=== PATIENT | female | born 1945 | race Caucasian/White ===

== ENCOUNTER 2019-03-14 10:35 | Emergency (ER) | payer MEDICARE, BC ==
[2019-03-14] MEDS ORDERED: Sodium Chloride 0.9% 10 ML Syringe FLUSH PRN (11:02)
[2019-03-14 11:20] VITALS: BP 163/83
--- NOTE | 2019-03-14 11:37 | CR ---
[id number] RAD/RAD Chest PA or AP 1V EXAM: FRONTAL CHEST INDICATION: Chest pain. COMPARISON: July 16, 2015. DISCUSSION: Mild linear scarring or atelectasis in the lung bases. A probable left hilar granulomas unchanged. The heart is at upper limits of normal for size. No definite acute infiltrates. IMPRESSION: 1. No acute findings. Juice Kent MD 03/14/19 1136 Thank you for allowing us to participate in the care of your patient.
[2019-03-14 11:54] LABS: CHLORIDE,CL 100 mmol/L (98-107); SODIUM,NA 139 mmol/L (136-145)
[2019-03-14 11:57] LABS: ANION GAP 14.7 mmol/L (10-20)
[2019-03-14] MEDS ORDERED: Iopamidol 612 MG/ML 100 ML Bottle IVPUSH ONE (12:20)
--- NOTE | 2019-03-14 13:15 | CT ---
[id number] CT/CTA Chest EXAM: CT ANGIOGRAM CHEST INDICATION: Left-sided chest pain and positive d-dimer. COMPARISON: Chest radiograph same date. DISCUSSION: The pulmonary arteries are normal in appearance with no emboli identified. Moderate emphysematous changes in both lungs. Scattered atherosclerotic plaque in the aorta and its major branches.No pleural or pericardial effusion. Normal heart size. No mediastinal, hilar or axillary lymphadenopathy. Left mastectomy. The imaged upper abdomen and osseous structures are unremarkable. IMPRESSION: 1. Negative for pulmonary embolism or other acute findings. 2. Moderate emphysema. Juice Kent MD 03/14/19 2689 Thank you for allowing us to participate in the care of your patient.
--- NOTE | 2019-03-15 00:16 | EDM.PDOC ---
ED HPI GENERAL MEDICAL PROBLEM - General Chief Complaint: Chest Pain Stated Complaint: CHEST PAINS Time Seen by Provider: 03/14/19 10:50 Source of Information: Reports: Patient History Limitations: Reports: No Limitations - History of Present Illness INITIAL COMMENTS - FREE TEXT/NARRATIVE: Pt. presents to ER with complaints of sharp, "prickling" pain to L anteriolateral chest. Pt. states that she has experienced this is the past but states that it is worse today. Denies any fever or chills. No substernal chest pain. She states that the discomfort is constant but intermittent. Denies any jaw, arm, neck or back pain. She states that the pain was worse when she woke up this AM. She has had some pain in the area that was thought to be secondary to mastectomy many years ago. She states that the discomfort is a deep as opposed to superficial pain. It was resolved by the time she got to the ER. Onset Date: 03/15/19 Location: Reports: Chest Quality: Reports: Sharp - Related Data Allergies Allergy/AdvReac Type Severity Reaction Status Date / Time lisinopril Allergy Shortness Verified 03/14/19 11:13 of Breath Penicillins Allergy Hives Verified 03/14/19 11:13 codeine AdvReac Nausea Verified 03/14/19 11:13 hydrocodone AdvReac Abdominal Verified 03/14/19 11:13 Pain metoprolol succinate AdvReac Anxiety Verified 03/14/19 11:13 [From Toprol XL] oxycodone HCl [From Roxicet] AdvReac Nausea and Verified 03/14/19 11:13 Vomiting Home Meds: Home Meds ALPRAZolam [Xanax] 0.25 mg PO BID 12/25/13 [History] Omeprazole 20 mg PO BID 12/25/13 [History] Sertraline HCl 100 mg PO DAILY 12/25/13 [History] Aspirin 325 mg PO DAILY 05/22/14 [History] Isosorbide Mononitrate [Imdur] 30 mg PO DAILY 05/22/14 [History] Nitroglycerin [Nitrostat] 0.4 mg SL ASDIRECTED 05/22/14 [History] Tiotropium [Spiriva HandiHaler] 18 mcg INH DAILY 07/16/15 [History] Cholecalciferol (Vitamin D3) [Vitamin D3] 3,000 unit PO ASDIRECTED 08/16/15 [ History] Cyanocobalamin (Vitamin B-12) [Vitamin B-12] 1,000 mcg PO ASDIRECTED 08/16/15 [ History] Past Medical History Cardiovascular History: Reports: Angina, CAD, Hypertension Other Cardiovascular History: chest pain Respiratory History: Reports: COPD Gastrointestinal History: Reports: Hiatal Hernia Genitourinary History: Reports: UTI, Recurrent Other Genitourinary History: RECENT SALMONELLA INFECTION Musculoskeletal History: Reports: Osteoarthritis Neurological History: Reports: Vertigo Endocrine/Metabolic History: Reports: Other (See Below) Other Endocrine/Metabolic History: hypokalemia Oncologic (Cancer) History: Reports: Breast - Past Surgical History Oncologic Surgical History: Reports: Mastectomy Social & Family History - Tobacco Use Smoking Status *Q: Never Smoker - Recreational Drug Use Recreational Drug Use: No - Living Situation & Occupation Living situation: Reports: , with Family Occupation: Employed ED ROS GENERAL - Review of Systems Review Of Systems: See Below Constitutional: Reports: No Symptoms HEENT: Reports: No Symptoms Cardiovascular: Reports: No Symptoms, Other (see above) GI/Abdominal: Reports: No Symptoms : Reports: No Symptoms Musculoskeletal: Reports: No Symptoms Skin: Reports: No Symptoms Neurological: Reports: No Symptoms Psychiatric: Reports: No Symptoms Hematologic/Lymphatic: Reports: No Symptoms Immunologic: Reports: No Symptoms ED EXAM, GENERAL - Physical Exam Exam: See Below Exam Limited By: No Limitations General Appearance: Alert, WD/WN, No Apparent Distress Nose: Normal Inspection, Normal Mucosa, No Blood Throat/Mouth: Normal Inspection, Normal Lips, Normal Teeth, Normal Gums Head: Atraumatic, Normocephalic Neck: Normal Inspection, Supple, Non-Tender, Full Range of Motion Respiratory/Chest: No Respiratory Distress, Lungs Clear, Normal Breath Sounds, No Accessory Muscle Use, Chest Non-Tender Cardiovascular: Normal Peripheral Pulses, Regular Rate, Rhythm, No Edema, No Gallop, No JVD, No Murmur, No Rub Peripheral Pulses: 4+: Radial (R) GI/Abdominal: Soft, Non-Tender, No Mass (Female) Exam: Deferred Rectal (Female) Exam: Deferred Back Exam: Normal Inspection, Full Range of Motion Extremities: Normal Inspection, Normal Range of Motion, Non-Tender, No Pedal Edema, Normal Capillary Refill Neurological: Alert, Oriented, CN II-XII Intact, Normal Cognition, Normal Gait, Normal Reflexes, No Motor/Sensory Deficits Psychiatric: Normal Affect, Normal Mood Skin Exam: Warm, Dry, Intact EKG INTERPRETATION Rhythm: NSR [place]: Normal P-Wave: Present QRS: Normal ST-T: Normal QT: Normal Comparison: No Change Course - Vital Signs Last Recorded V/S: Last Vital Signs Temp 36.6 C 03/14/19 10:35 Pulse 79 03/14/19 10:35 Resp 16 03/14/19 10:35 BP 163/83 H 03/14/19 10:35 Pulse Ox 93 L 03/14/19 10:35 - Orders/Labs/Meds Orders: Active Orders 24 hr Category Date Time Status EKG Documentation Completion [RC] STAT Care 03/14/19 11:03 Active Peripheral IV Insertion Adult [OM.PC] Routine Oth 03/14/19 11:04 Ordered Labs: Laboratory Tests 03/14/19 03/14/19 03/14/19 Range/Units 10:57 10:57 10:57 WBC 9.4 (4.0-10.0) x10^3/uL RBC 5.13 (4.00-5.50) x10^6/uL Hgb 13.7 D (12.0-16.0) g/dL Hct 40.6 (33.0-47.0) % MCV 79.1 (78.0-93.0) fL MCH 26.7 (26.0-32.0) pg MCHC 33.7 (32.0-36.0) g/dL RDW Coeff of Daljit 15.0 (10.0-15.0) % Plt Count 206 (130-400) x10^3/uL Neut % (Auto) 83.2 H (50.0-80.0) % Lymph % (Auto) 9.2 L (25.0-50.0) % [place] % (Auto) 6.4 (2.0-11.0) % Eos % (Auto) 1.0 (0.0-4.0) % Baso % (Auto) 0.2 (0.2-1.2) % PT 10.1 (10.0-12.8) SEC INR 0.9 L (2.0-3.5) D-Dimer, Quantitative (<=0.58) mg/LFEU Sodium 139 (136-145) mmol/L Potassium 3.7 (3.5-5.1) mmol/L Chloride 100 (98-107) mmol/L Carbon Dioxide 28 (21-32) mmol/L Anion Gap 14.7 (10-20) mmol/L BUN 14 (7-18) mg/dL Creatinine 0.8 (0.55-1.02) mg/dL Est Cr Clr Drug Dosing TNP Estimated GFR (MDRD) > 60 Glucose 111 H (74-106) mg/dL Calcium 9.4 (8.5-10.1) mg/dL Corrected Calcium 9.48 (8.5-10.1) mg/dL Phosphorus 4.3 (2.6-4.7) mg/dL Magnesium 1.8 (1.8-2.4) mg/dL Total Bilirubin 0.5 (0.2-1.0) mg/dL AST 15 (15-37) U/L ALT 21 (14-59) U/L Alkaline Phosphatase 86 (46-116) U/L C-Reactive Protein 0.2 (<=0.9) mg/dL Total Protein 8.0 (6.4-8.2) g/dL Albumin 3.9 (3.4-5.0) g/dL Globulin 4.1 Albumin/Globulin Ratio 0.95 // Range/Units 10:57 WBC (4.0-10.0) x10^3/uL RBC (4.00-5.50) x10^6/uL Hgb (12.0-16.0) g/dL Hct (33.0-47.0) % MCV (78.0-93.0) fL MCH (26.0-32.0) pg MCHC (32.0-36.0) g/dL RDW Coeff of Daljit (10.0-15.0) % Plt Count (130-400) x10^3/uL Neut % (Auto) (50.0-80.0) % Lymph % (Auto) (25.0-50.0) % [place] % (Auto) (2.0-11.0) % Eos % (Auto) (0.0-4.0) % Baso % (Auto) (0.2-1.2) % PT (10.0-12.8) SEC INR (2.0-3.5) D-Dimer, Quantitative 0.66 H (<=0.58) mg/LFEU Sodium (136-145) mmol/L Potassium (3.5-5.1) mmol/L Chloride (98-107) mmol/L Carbon Dioxide (21-32) mmol/L Anion Gap (10-20) mmol/L BUN (7-18) mg/dL Creatinine (0.55-1.02) mg/dL Est Cr Clr Drug Dosing Estimated GFR (MDRD) Glucose (74-106) mg/dL Calcium (8.5-10.1) mg/dL Corrected Calcium (8.5-10.1) mg/dL Phosphorus (2.6-4.7) mg/dL Magnesium (1.8-2.4) mg/dL Total Bilirubin (0.2-1.0) mg/dL AST (15-37) U/L ALT (14-59) U/L Alkaline Phosphatase (46-116) U/L C-Reactive Protein (<=0.9) mg/dL Total Protein (6.4-8.2) g/dL Albumin (3.4-5.0) g/dL Globulin Albumin/Globulin Ratio Meds: Medications Discontinued Medications Generic Name Dose Route Start Last Admin Trade Name Freq PRN Reason Stop Dose Admin Iopamidol 100 ml 03/14/19 12:20 03/14/19 12:41 Isovue-300 (61%) IVPUSH 03/14/19 12:21 100 ml ONETIME ONE Administration Sodium Chloride 10 ml 03/14/19 11:02 Saline Flush FLUSH ASDIRECTED PRN Keep Vein Open - Radiology Interpretation Free Text/Narrative:: CTA of chest did not reveal any acute pathology. Departure - Departure Time of Disposition: 12:30 Disposition: Home, Self-Care 01 Clinical Impression: Atypical chest pain - Discharge Information Instructions: Nonspecific Chest Pain, [id number] Referrals: Aylin Condon, [Primary Care Provider] - Forms: ED Department Discharge Additional Instructions: Home to rest. Follow-up in clinic in 7-10 days Return to ER if you have worsening discomfort or shortness of breath. - My Orders Last 24 Hours: My Active Orders 03/14/19 11:03 EKG Documentation Completion [RC] STAT 03/14/19 11:04 Peripheral IV Insertion Adult [OM.PC] Routine - Assessment/Plan Last 24 Hours: My Active Orders 03/14/19 11:03 EKG Documentation Completion [RC] STAT 03/14/19 11:04 Peripheral IV Insertion Adult [OM.PC] Routine Plan: Home to rest. Follow-up in clinic in 7-10 days Return to ER if you have worsening discomfort or shortness of breath.
== END 2019-03-14 13:45 | disposition home or self-care (01) ==
LOC: VM.ED 10:35
DX: R07.89 Other chest pain (principal); I10 Essential (primary) hypertension; I25.10 Atherosclerotic heart disease of native coronary artery without angina pectoris; M19.90 Unspecified osteoarthritis, unspecified site; Z79.82 Long term (current) use of aspirin; Z79.899 Other long term (current) drug therapy; Z88.0 Allergy status to penicillin; Z88.5 Allergy status to narcotic agent; Z88.8 Allergy status to other drugs, medicaments and biological substances
CPT/HCPCS: 71045; 71275; 80053; 83735; 84100; 85025; 85379; 85610; 86140; 93005; 93010; 99284; 99285; Q9967; 36415

== ENCOUNTER 2019-03-16 16:41 | Emergency (ER) | payer MEDICARE, BC ==
[2019-03-16] MEDS ORDERED: Sodium Chloride 0.9% 10 ML Syringe FLUSH PRN (16:43)
[2019-03-16] MEDS ORDERED: Enalaprilat 1.25 MG/ML SDV IVPUSH ONE (16:45)
[2019-03-16] MEDS ORDERED: GI Cocktail Oral Solution 30 ML PO ONE (16:45)
--- NOTE | 2019-03-16 16:56 | EDM.PDOC ---
ED HPI GENERAL MEDICAL PROBLEM - General Chief Complaint: Chest Pain Stated Complaint: high blood pressure Time Seen by Provider: 03/16/19 16:43 Source of Information: Reports: Patient, Provider History Limitations: Reports: No Limitations - History of Present Illness INITIAL COMMENTS - FREE TEXT/NARRATIVE: Patient presents from the [facility] with complaints of chest pain and elevated blood pressure of over 180 SBP. States pain is anterolateral and is reproducible. Seen in the ED here 03/14/19 for similar complaints with elevated d-dimer noted. Chest CTA negative for embolus. Work up negative at that time. States this has been ongoing for the last couple of weeks. No complaints of SOB or leg pain. No history of DVT. Denies headache, vision changes, numbness , tingling, jaw, neck, or arm pain. Denies nausea, vomiting, diarrhea, blood in stools or urine. Denies urinary symptoms. History of left mastectomy. Onset: Gradual Duration: Intermittent Location: Reports: Chest Quality: Reports: Sharp Severity: Moderate Worsens with: Reports: Breathing, Movement Associated Symptoms: Reports: No Other Symptoms - Related Data Allergies Allergy/AdvReac Type Severity Reaction Status Date / Time lisinopril Allergy Shortness Verified 03/16/19 17:14 of Breath Penicillins Allergy Hives Verified 03/16/19 17:14 codeine AdvReac Nausea Verified 03/16/19 17:14 hydrocodone AdvReac Abdominal Verified 03/16/19 17:14 Pain metoprolol succinate AdvReac Anxiety Verified 03/16/19 17:14 [From Toprol XL] oxycodone HCl [From Roxicet] AdvReac Nausea and Verified 03/16/19 17:14 Vomiting Home Meds: Home Meds ALPRAZolam [Xanax] 0.25 mg PO BID 12/25/13 [History] Omeprazole 20 mg PO BID 12/25/13 [History] Sertraline HCl 100 mg PO DAILY 12/25/13 [History] Aspirin 325 mg PO DAILY 05/22/14 [History] Isosorbide Mononitrate [Imdur] 30 mg PO DAILY 05/22/14 [History] Nitroglycerin [Nitrostat] 0.4 mg SL ASDIRECTED 05/22/14 [History] Tiotropium [Spiriva HandiHaler] 18 mcg INH DAILY 07/16/15 [History] Cholecalciferol (Vitamin D3) [Vitamin D3] 3,000 unit PO ASDIRECTED 08/16/15 [ History] Cyanocobalamin (Vitamin B-12) [Vitamin B-12] 1,000 mcg PO ASDIRECTED 08/16/15 [ History] Past Medical History Cardiovascular History: Reports: Angina, CAD, Hypertension Other Cardiovascular History: chest pain Respiratory History: Reports: COPD Gastrointestinal History: Reports: Hiatal Hernia Genitourinary History: Reports: UTI, Recurrent Other Genitourinary History: RECENT SALMONELLA INFECTION Musculoskeletal History: Reports: Osteoarthritis Neurological History: Reports: Vertigo Endocrine/Metabolic History: Reports: Other (See Below) Other Endocrine/Metabolic History: hypokalemia Oncologic (Cancer) History: Reports: Breast - Past Surgical History Oncologic Surgical History: Reports: Mastectomy Social & Family History - Living Situation & Occupation Living situation: Reports: , with Family Occupation: Employed ED ROS GENERAL - Review of Systems Review Of Systems: See Below Constitutional: Reports: No Symptoms HEENT: Reports: No Symptoms Respiratory: Reports: No Symptoms Cardiovascular: Reports: Chest Pain Endocrine: Reports: No Symptoms GI/Abdominal: Reports: No Symptoms : Reports: No Symptoms Musculoskeletal: Reports: No Symptoms Skin: Reports: No Symptoms Neurological: Reports: No Symptoms Psychiatric: Reports: Anxiety Hematologic/Lymphatic: Reports: No Symptoms Immunologic: Reports: No Symptoms ED EXAM, GENERAL - Physical Exam Exam: See Below Exam Limited By: No Limitations General Appearance: Alert, WD/WN, No Apparent Distress Eye Exam: Bilateral Eye: EOMI, Normal Inspection, PERRL Ears: Normal TMs Nose: Normal Inspection, Normal Mucosa, No Blood Throat/Mouth: Normal Inspection, Normal Lips, Normal Teeth, Normal Gums, Normal Oropharynx, Normal Voice, No Airway Compromise Head: Atraumatic, Normocephalic Neck: Normal Inspection, Supple, Non-Tender, Full Range of Motion Respiratory/Chest: No Respiratory Distress, Lungs Clear, Normal Breath Sounds, No Accessory Muscle Use, Chest Non-Tender Cardiovascular: Normal Peripheral Pulses, Regular Rate, Rhythm, No Edema, No Gallop, No JVD, No Murmur, No Rub Peripheral Pulses: 2+: Posterior Tibial (L), Posterior Tibial (R), Dorsalis Pedis (L), Dorsalis Pedis (R) GI/Abdominal: Normal Bowel Sounds, Soft, Non-Tender, No Organomegaly, No Distention, No Abnormal Bruit, No Mass Back Exam: Normal Inspection, Full Range of Motion, NT Extremities: Normal Inspection, Normal Range of Motion, Non-Tender, Normal Capillary Refill, No Pedal Edema Neurological: Alert, Oriented, CN II-XII Intact, Normal Cognition, Normal Gait, Normal Reflexes, No Motor/Sensory Deficits Psychiatric: Normal Affect, Normal Mood Skin Exam: Warm, Dry, Intact, Normal Color, No Rash, Other (prior left sided mastectomy scars) Lymphatic: No Adenopathy Course - Vital Signs Last Recorded V/S: Last Vital Signs Temp 36.9 C 03/16/19 16:41 Pulse 81 03/16/19 16:41 Resp 16 03/16/19 16:41 BP 153/73 H 03/16/19 17:30 Pulse Ox 95 03/16/19 16:41 - Orders/Labs/Meds Orders: Active Orders 24 hr Category Date Time Status EKG Documentation Completion [RC] STAT Care 03/16/19 16:43 Active Sodium Chloride 0.9% [Normal Saline] 1,000 ml Med 03/16/19 17:15 Ordered IV ASDIRECTED Sodium Chloride 0.9% [Saline Flush] Med 03/16/19 16:43 Active 10 ml FLUSH ASDIRECTED PRN Saline Lock Insert [OM.PC] Routine Oth 03/16/19 16:43 Ordered Medication Orders Sodium Chloride (Normal Saline) 1,000 mls @ 999 mls/hr IV ASDIRECTED VASU Last Admin: 03/16/19 17:28 Dose: 999 mls/hr Sodium Chloride (Saline Flush) 10 ml FLUSH ASDIRECTED PRN PRN Reason: Keep Vein Open Labs: Laboratory Tests 03/16/19 03/16/19 03/16/19 Range/Units 17:10 17:10 17:10 WBC 9.4 (4.0-10.0) x10^3/uL RBC 5.16 (4.00-5.50) x10^6/uL Hgb 14.0 (12.0-16.0) g/dL Hct 40.2 (33.0-47.0) % MCV 77.9 L (78.0-93.0) fL MCH 27.1 (26.0-32.0) pg MCHC 34.8 (32.0-36.0) g/dL RDW Coeff of Daljit 14.9 (10.0-15.0) % Plt Count 182 (130-400) x10^3/uL Neut % (Auto) 79.0 (50.0-80.0) % Lymph % (Auto) 12.0 L (25.0-50.0) % [place] % (Auto) 7.9 (2.0-11.0) % Eos % (Auto) 0.9 (0.0-4.0) % Baso % (Auto) 0.2 (0.2-1.2) % PT 9.9 L (10.0-12.8) SEC INR 0.9 L (2.0-3.5) APTT 24.5 (24.0-36.0) SEC D-Dimer, Quantitative 0.65 H (<=0.58) mg/LFEU Sodium 138 (136-145) mmol/L Potassium 3.6 (3.5-5.1) mmol/L Chloride 99 (98-107) mmol/L Carbon Dioxide 25 (21-32) mmol/L Anion Gap 17.6 (10-20) mmol/L BUN 9 (7-18) mg/dL Creatinine 0.8 (0.55-1.02) mg/dL Est Cr Clr Drug Dosing TNP Estimated GFR (MDRD) > 60 Glucose 105 (74-106) mg/dL Calcium 9.3 (8.5-10.1) mg/dL Corrected Calcium 9.22 (8.5-10.1) mg/dL Magnesium 2.1 (1.8-2.4) mg/dL Total Bilirubin 0.4 (0.2-1.0) mg/dL AST 15 (15-37) U/L ALT 20 (14-59) U/L Alkaline Phosphatase 84 (46-116) U/L Troponin I < 0.017 (<=0.056) ng/mL NT-Pro-B Natriuret Pep (<=450) pg/mL Total Protein 7.7 (6.4-8.2) g/dL Albumin 4.1 (3.4-5.0) g/dL Globulin 3.6 Albumin/Globulin Ratio 1.14 TSH, Ultra Sensitive 7.173 H (0.358-3.74) uIU/mL 03/16/19 Range/Units 17:10 WBC (4.0-10.0) x10^3/uL RBC (4.00-5.50) x10^6/uL Hgb (12.0-16.0) g/dL Hct (33.0-47.0) % MCV (78.0-93.0) fL MCH (26.0-32.0) pg MCHC (32.0-36.0) g/dL RDW Coeff of Daljit (10.0-15.0) % Plt Count (130-400) x10^3/uL Neut % (Auto) (50.0-80.0) % Lymph % (Auto) (25.0-50.0) % [place] % (Auto) (2.0-11.0) % Eos % (Auto) (0.0-4.0) % Baso % (Auto) (0.2-1.2) % PT (10.0-12.8) SEC INR (2.0-3.5) APTT (24.0-36.0) SEC D-Dimer, Quantitative (<=0.58) mg/LFEU Sodium (136-145) mmol/L Potassium (3.5-5.1) mmol/L Chloride (98-107) mmol/L Carbon Dioxide (21-32) mmol/L Anion Gap (10-20) mmol/L BUN (7-18) mg/dL Creatinine (0.55-1.02) mg/dL Est Cr Clr Drug Dosing Estimated GFR (MDRD) Glucose (74-106) mg/dL Calcium (8.5-10.1) mg/dL Corrected Calcium (8.5-10.1) mg/dL Magnesium (1.8-2.4) mg/dL Total Bilirubin (0.2-1.0) mg/dL AST (15-37) U/L ALT (14-59) U/L Alkaline Phosphatase (46-116) U/L Troponin I (<=0.056) ng/mL NT-Pro-B Natriuret Pep 317 (<=450) pg/mL Total Protein (6.4-8.2) g/dL Albumin (3.4-5.0) g/dL Globulin Albumin/Globulin Ratio TSH, Ultra Sensitive (0.358-3.74) uIU/mL Meds: Medications Generic Name Dose Route Start Last Admin Trade Name Freq PRN Reason Stop Dose Admin Sodium Chloride 1,000 mls @ 999 mls/hr 03/16/19 17:15 03/16/19 17:28 Normal Saline IV 999 mls/hr ASDIRECTED VASU Administration Sodium Chloride 10 ml 03/16/19 16:43 Saline Flush FLUSH ASDIRECTED PRN Keep Vein Open Discontinued Medications Generic Name Dose Route Start Last Admin Trade Name Freq PRN Reason Stop Dose Admin Al Hydroxide/Mg Hydroxide 30 ml 03/16/19 16:45 03/16/19 17:28 Gi Cocktail PO 03/16/19 16:46 30 ml ONETIME ONE Administration Diphenhydramine HCl 25 mg 03/16/19 17:08 03/16/19 17:32 Benadryl IVPUSH 03/16/19 17:09 25 mg ONETIME ONE Administration Enalaprilat 1.25 mg 03/16/19 16:45 03/16/19 17:30 Vasotec Iv IVPUSH 03/16/19 16:46 1.25 mg ONETIME ONE Administration Lorazepam 0.5 mg 03/16/19 17:08 03/16/19 17:33 Ativan IVPUSH 03/16/19 17:09 0.5 mg STAT ONE Administration Methylprednisolone Sodium Succinate 125 mg 03/16/19 17:08 03/16/19 17:28 Solu-Medrol IVPUSH 03/16/19 17:09 125 mg ONETIME ONE Administration - Re-Assessments/Exams Free Text/Narrative Re-Assessment/Exam: 03/16/19 18:13 Labwork grossly normal or without changes from Friday. D-dimer slightly lower but still elevated. Vasotec given, blood pressure reduced to 135 SBP. Chest pain improved. TSH noted to be high. Further work up with primary was recommended to the patient. States her granddaughter did have to have thyroid removed at age 22. Departure - Departure Time of Disposition: 18:14 Disposition: Home, Self-Care 01 Condition: Good Clinical Impression: Costochondral chest pain, Anxiety Instructions: Chest Wall Pain, [id number], Generalized Anxiety Disorder, Adult, Costochondritis, [id number] Forms: ED Department Discharge Additional Instructions: Plan 1. Rest and stay well hydrated today 2. Labs and other diagnostics grossly unchanged from Friday 3. I think your chest pain is related to some pain in the ribs and cartilage called costochondritis. This, paired with your anxiety is also resulting in elevated blood pressures. 4. Visit with your PCP regarding upping your anxiety medication dosage and perhaps starting on a small dose of medications for blood pressure control. 5. Please do not hesitate to call us if you have any further questions or concerns related to today's visit. - Problem List & Annotations (1) Hypertension SNOMED Code(s): 07567470 Code(s): I10 - ESSENTIAL (PRIMARY) HYPERTENSION Status: Chronic Priority : Medium Current Visit: No Qualifiers: Hypertension type: essential hypertension Qualified Code(s): I10 - Essential (primary) hypertension (2) Anxiety SNOMED Code(s): 37960546 Code(s): F41.9 - ANXIETY DISORDER, UNSPECIFIED Status: Acute Priority: Medium Current Visit: Yes (3) Costochondral chest pain SNOMED Code(s): 435355942, 189916754 Code(s): R07.1 - CHEST PAIN ON BREATHING Status: Acute Priority: Medium Current Visit: Yes - Problem List Review Problem List Initiated/Reviewed/Updated: Yes - My Orders Last 24 Hours: My Active Orders 03/16/19 16:43 EKG Documentation Completion [RC] STAT Sodium Chloride 0.9% [Saline Flush] 10 ml FLUSH ASDIRECTED PRN Saline Lock Insert [OM.PC] Routine 03/16/19 17:15 Sodium Chloride 0.9% [Normal Saline] 1,000 ml IV ASDIRECTED - Assessment/Plan Last 24 Hours: My Active Orders 03/16/19 16:43 EKG Documentation Completion [RC] STAT Sodium Chloride 0.9% [Saline Flush] 10 ml FLUSH ASDIRECTED PRN Saline Lock Insert [OM.PC] Routine 03/16/19 17:15 Sodium Chloride 0.9% [Normal Saline] 1,000 ml IV ASDIRECTED Assessment:: anxiety costochondral chest pain hypertension Plan: Plan 1. Rest and stay well hydrated today 2. Labs and other diagnostics grossly unchanged from Friday 3. I think your chest pain is related to some pain in the ribs and cartilage called costochondritis. This, paired with your anxiety is also resulting in elevated blood pressures. 4. Visit with your PCP regarding upping your anxiety medication dosage and perhaps starting on a small dose of medications for blood pressure control. 5. Please do not hesitate to call us if you have any further questions or concerns related to today's visit.
[2019-03-16] MEDS ORDERED: diphenhydrAMINE 50 MG/ML SDV IVPUSH ONE (17:08)
[2019-03-16] MEDS ORDERED: LORazepam 2 MG/ML SDV IVPUSH ONE (17:08)
[2019-03-16] MEDS ORDERED: methylPREDNISolone Sodium Succinate 125 MG/2 ML SDV IVPUSH ONE (17:08)
[2019-03-16] MEDS ORDERED: Sodium Chloride 0.9% 1,000 ML IV SCH (17:15)
--- NOTE | 2019-03-16 17:36 | CR ---
[id number] RAD/RAD Chest PA And Lateral EXAM: RAD Chest PA And Lateral INDICATION: CHEST PAIN. COMPARISON: CT and radiograph examinations from March 14, 2019. DISCUSSION: Cardiomediastinal silhouette is normal in size and contour. No infiltrate, effusion, pneumothorax, or edema. IMPRESSION: No acute findings in the chest or significant change from the prior examination. Eliot Shepard MD 03/16/19 1738 Thank you for allowing us to participate in the care of your patient.
[2019-03-16 17:50] LABS: ANION GAP 17.6 mmol/L (10-20); CHLORIDE,CL 99 mmol/L (98-107); SODIUM,NA 138 mmol/L (136-145)
[2019-03-16 18:05] VITALS: BP 139/78
== END 2019-03-16 18:19 | disposition home or self-care (01) ==
LOC: VM.ED 16:41
DX: F41.9 Anxiety disorder, unspecified (principal); R07.1 Chest pain on breathing; I10 Essential (primary) hypertension; I25.10 Atherosclerotic heart disease of native coronary artery without angina pectoris; M19.90 Unspecified osteoarthritis, unspecified site; Z88.0 Allergy status to penicillin; Z88.8 Allergy status to other drugs, medicaments and biological substances; Z88.5 Allergy status to narcotic agent; Z79.899 Other long term (current) drug therapy; Z79.82 Long term (current) use of aspirin
CPT/HCPCS: 36415; 71046; 80053; 83735; 83880; 84443; 84484; 85025; 85379; 85610; 85730; 93005; 96361; 96374; 96375; 99285-25; A9270-GY; J1200; J2060; J2930; J7030

== ENCOUNTER 2019-04-10 08:59 | Emergency (ER) | payer MEDICARE, BC ==
[2019-04-10 09:30] VITALS: BP 149/76; PULSE 75
[2019-04-10 10:02] LABS: CHLORIDE,CL 99 mmol/L (98-107); SODIUM,NA 136 mmol/L (136-145)
[2019-04-10 10:16] LABS: ANION GAP 12.6 mmol/L (10-20)
--- NOTE | 2019-04-10 10:41 | EDM.PDOC ---
ED HPI GENERAL MEDICAL PROBLEM - General Chief Complaint: Chest Pain Stated Complaint: SOB/RT SHOULDER PAIN Time Seen by Provider: 04/10/19 09:00 Source of Information: Reports: Patient History Limitations: Reports: No Limitations - History of Present Illness INITIAL COMMENTS - FREE TEXT/NARRATIVE: This patient presents to ER with complaints of R shoulder and L anterior chest pain. The patient has had similar symptoms in the past and this is her 3rd visit to ER in a month for similar symptoms. Pt. states that she has been having pain under her R shoulder blade for several days. She has also been having incisional pain since her mastectomy on the L anterior chest intermittently as well and feels as though the discomfort is worse today. She has not had any fever or chills. No substernal chest pain. She is not short of breath. No cough. Pt. has undergone numerous chest x-rays, CT angiogram of the chest, and lab testing in the past month, all of which has been negative. Onset: Today Onset Date: 04/10/19 Left Upper Chest Pain Score (Numeric/FACES): 3 - Related Data Allergies Allergy/AdvReac Type Severity Reaction Status Date / Time lisinopril Allergy Shortness Verified 04/10/19 09:21 of Breath Penicillins Allergy Hives Verified 04/10/19 09:21 codeine AdvReac Nausea Verified 04/10/19 09:21 hydrocodone AdvReac Abdominal Verified 04/10/19 09:21 Pain metoprolol succinate AdvReac Anxiety Verified 04/10/19 09:21 [From Toprol XL] oxycodone HCl [From Roxicet] AdvReac Nausea and Verified 04/10/19 09:21 Vomiting Home Meds: Home Meds ALPRAZolam [Xanax] 0.25 mg PO BID 12/25/13 [History] Sertraline HCl 100 mg PO DAILY 12/25/13 [History] Aspirin 325 mg PO DAILY 05/22/14 [History] Isosorbide Mononitrate [Imdur] 30 mg PO DAILY 05/22/14 [History] Tiotropium [Spiriva HandiHaler] 18 mcg INH DAILY 07/16/15 [History] Cholecalciferol (Vitamin D3) [Vitamin D3] 3,000 unit PO ASDIRECTED 08/16/15 [ History] Cyanocobalamin (Vitamin B-12) [Vitamin B-12] 1,000 mcg PO ASDIRECTED 08/16/15 [ History] Past Medical History Cardiovascular History: Reports: Angina, CAD, Hypertension Other Cardiovascular History: chest pain Respiratory History: Reports: COPD Gastrointestinal History: Reports: Hiatal Hernia Genitourinary History: Reports: UTI, Recurrent Other Genitourinary History: RECENT SALMONELLA INFECTION Musculoskeletal History: Reports: Osteoarthritis Neurological History: Reports: Vertigo Endocrine/Metabolic History: Reports: Other (See Below) Other Endocrine/Metabolic History: hypokalemia Oncologic (Cancer) History: Reports: Breast - Past Surgical History Oncologic Surgical History: Reports: Mastectomy Social & Family History - Tobacco Use Smoking Status *Q: Never Smoker - Recreational Drug Use Recreational Drug Use: No - Living Situation & Occupation Living situation: Reports: , with Family Occupation: Employed ED ROS GENERAL - Review of Systems Review Of Systems: See Below Constitutional: Reports: No Symptoms HEENT: Reports: No Symptoms Respiratory: Reports: Pleuritic Chest Pain Cardiovascular: Reports: No Symptoms Endocrine: Reports: No Symptoms GI/Abdominal: Reports: No Symptoms : Reports: No Symptoms Musculoskeletal: Reports: Shoulder Pain Skin: Reports: No Symptoms Neurological: Reports: No Symptoms Psychiatric: Reports: No Symptoms Hematologic/Lymphatic: Reports: No Symptoms Immunologic: Reports: No Symptoms ED EXAM, GENERAL - Physical Exam Exam: See Below Exam Limited By: No Limitations General Appearance: Alert, WD/WN, No Apparent Distress Respiratory/Chest: No Respiratory Distress, Lungs Clear, Normal Breath Sounds, No Accessory Muscle Use, Chest Non-Tender Cardiovascular: Normal Peripheral Pulses, Regular Rate, Rhythm, No Edema, No Gallop, No JVD, No Murmur, No Rub Peripheral Pulses: 3+: Radial (L) GI/Abdominal: Distended (Female) Exam: Deferred Rectal (Female) Exam: Deferred Back Exam: Normal Inspection, Full Range of Motion Extremities: Normal Inspection, Limited Range of Motion (limited ROM of R shoulder. Mild crepitus noted. Tenderness noted on palpation of lower border of scapula.) Neurological: Alert, Oriented, CN II-XII Intact, Normal Cognition, Normal Reflexes, No Motor/Sensory Deficits Psychiatric: Normal Affect, Normal Mood Skin Exam: Warm, Dry, Intact, Normal Color, No Rash Course - Vital Signs Last Recorded V/S: Last Vital Signs Temp 35.9 C 04/10/19 08:59 Pulse 75 04/10/19 08:59 Resp 16 04/10/19 08:59 BP 149/76 H 04/10/19 08:59 Pulse Ox 95 04/10/19 08:59 - Orders/Labs/Meds Orders: Active Orders 24 hr Category Date Time Status EKG Documentation Completion [RC] STAT Care 04/10/19 09:23 Active Chest 2V [CR] Stat Exams 04/10/19 09:23 Ordered Labs: Laboratory Tests 04/10/19 04/10/19 04/10/19 Range/Units 09:34 09:34 09:34 WBC 8.7 (4.0-10.0) x10^3/uL RBC 4.91 (4.00-5.50) x10^6/uL Hgb 13.2 (12.0-16.0) g/dL Hct 39.4 (33.0-47.0) % MCV 80.2 (78.0-93.0) fL MCH 26.9 (26.0-32.0) pg MCHC 33.5 (32.0-36.0) g/dL RDW Coeff of Daljit 15.6 H (10.0-15.0) % Plt Count 174 (130-400) x10^3/uL Neut % (Auto) 82.4 H (50.0-80.0) % Lymph % (Auto) 9.4 L (25.0-50.0) % [place] % (Auto) 6.9 (2.0-11.0) % Eos % (Auto) 1.0 (0.0-4.0) % Baso % (Auto) 0.3 (0.2-1.2) % PT 10.1 (10.0-12.8) SEC INR 0.9 L (2.0-3.5) Sodium 136 (136-145) mmol/L Potassium 4.6 (3.5-5.1) mmol/L Chloride 99 (98-107) mmol/L Carbon Dioxide 29 (21-32) mmol/L Anion Gap 12.6 (10-20) mmol/L BUN 10 (7-18) mg/dL Creatinine 0.8 (0.55-1.02) mg/dL Est Cr Clr Drug Dosing 56.00 mL/min Estimated GFR (MDRD) > 60 Glucose 122 H (74-106) mg/dL Calcium 9.3 (8.5-10.1) mg/dL Corrected Calcium 9.30 (8.5-10.1) mg/dL Total Bilirubin 0.5 (0.2-1.0) mg/dL AST 17 (15-37) U/L ALT 23 (14-59) U/L Alkaline Phosphatase 79 (46-116) U/L Troponin I < 0.017 (<=0.056) ng/mL Total Protein 7.2 (6.4-8.2) g/dL Albumin 4.0 (3.4-5.0) g/dL Globulin 3.2 Albumin/Globulin Ratio 1.25 Departure - Departure Time of Disposition: 10:44 Disposition: Home, Self-Care 01 Clinical Impression: Atypical chest pain - Discharge Information Instructions: Nonspecific Chest Pain, [id number] Referrals: Aylin Condon DO [Primary Care Provider] - Forms: ED Department Discharge Additional Instructions: There is no life-threatening cause for your chest pain. It is important that you follow-up with Dr. Condon for this. - My Orders Last 24 Hours: My Active Orders 04/10/19 09:23 EKG Documentation Completion [RC] STAT Chest 2V [CR] Stat - Assessment/Plan Last 24 Hours: My Active Orders 04/10/19 09:23 EKG Documentation Completion [RC] STAT Chest 2V [CR] Stat Plan: Pt. was advised to follow-up in clinic. Pt. should return if she develops shortness of breath, worsening discomfort, lightheadedness, or palpitations.
== END 2019-04-10 10:30 | disposition home or self-care (01) ==
LOC: VM.ED 08:59
DX: R07.89 Other chest pain (principal); I25.10 Atherosclerotic heart disease of native coronary artery without angina pectoris; I10 Essential (primary) hypertension; J44.9 Chronic obstructive pulmonary disease, unspecified; Z88.8 Allergy status to other drugs, medicaments and biological substances; Z88.0 Allergy status to penicillin; Z88.5 Allergy status to narcotic agent; Z79.899 Other long term (current) drug therapy
CPT/HCPCS: 36415; 80053; 84484; 85025; 85610; 93005; 99284-GF; 99285-25

== ENCOUNTER 2020-09-05 07:58 | Emergency (ER) | payer MEDICARE, BC ==
[2020-09-05] MEDS ORDERED: Sodium Chloride 0.9% 10 ML Syringe FLUSH PRN (08:20)
[2020-09-05] MEDS ORDERED: Aspirin 81 MG Tab.Chew PO ONE (08:21)
[2020-09-05] MEDS ORDERED: Nitroglycerin 0.4 MG Tab.SL SL ONE (08:21)
--- NOTE | 2020-09-05 08:41 | EDM.PDOC ---
ED HPI GENERAL MEDICAL PROBLEM - General Chief Complaint: Chest Pain Stated Complaint: CHEST PAIN Time Seen by Provider: 09/05/20 08:10 Source of Information: Reports: Patient History Limitations: Reports: No Limitations - History of Present Illness INITIAL COMMENTS - FREE TEXT/NARRATIVE: Patient comes emergency department today with complaints of left anterior chest pain. This patient for over the past 24 hours has had an intermittent heaviness sensation on the left anterior chest. She is unable to reproduce the pain. Comes and goes on its own. Does not get worse with deep breath cough or movement. She has had no shortness of breath cough or congestion. No fever no chills. The pain does not radiate anywhere from the site of origin. She has had no weakness dizziness lightheadedness. No palpitations. No cough or congestion. No fever no chills. No diaphoresis. No paresthesias. No abdominal pain nausea or vomiting. No hematuria dysuria or urinary frequency. No Covid Exposure No Covid symptoms. Chest Pain Pain Score (Numeric/FACES): 5 - Related Data Allergies Allergy/AdvReac Type Severity Reaction Status Date / Time lisinopril Allergy Shortness Verified 09/05/20 08:21 of Breath Penicillins Allergy Hives Verified 09/05/20 08:21 codeine AdvReac Nausea Verified 09/05/20 08:21 hydrocodone AdvReac Abdominal Verified 09/05/20 08:21 Pain metoprolol succinate AdvReac Anxiety Verified 09/05/20 08:21 [From Toprol XL] oxycodone HCl [From Roxicet] AdvReac Nausea and Verified 09/05/20 08:21 Vomiting Home Meds: Home Meds ALPRAZolam [Xanax] 0.25 mg PO BID 12/25/13 [History] Sertraline HCl 100 mg PO DAILY 12/25/13 [History] Aspirin 325 mg PO DAILY 05/22/14 [History] Isosorbide Mononitrate [Imdur] 30 mg PO DAILY 05/22/14 [History] Tiotropium [Spiriva HandiHaler] 18 mcg INH DAILY 07/16/15 [History] Cholecalciferol (Vitamin D3) [Vitamin D3] 3,000 unit PO ASDIRECTED 08/16/15 [History] Cyanocobalamin (Vitamin B-12) [Vitamin B-12] 1,000 mcg PO ASDIRECTED 08/16/15 [History] Nitroglycerin [Nitrostat] 0.4 mg SL ASDIRECTED #6 tab.subl 09/05/20 [Rx] Past Medical History Cardiovascular History: Reports: Angina, CAD, Hypertension Other Cardiovascular History: chest pain Respiratory History: Reports: COPD Gastrointestinal History: Reports: Hiatal Hernia Genitourinary History: Reports: UTI, Recurrent Other Genitourinary History: RECENT SALMONELLA INFECTION Musculoskeletal History: Reports: Osteoarthritis Neurological History: Reports: Vertigo Endocrine/Metabolic History: Reports: Other (See Below) Other Endocrine/Metabolic History: hypokalemia Oncologic (Cancer) History: Reports: Breast - Past Surgical History Oncologic Surgical History: Reports: Mastectomy Social & Family History - Living Situation & Occupation Living situation: Reports: , with Family Occupation: Employed ED ROS GENERAL - Review of Systems Review Of Systems: Comprehensive ROS is negative, except as noted in HPI. ED EXAM, GENERAL - Physical Exam Exam: See Below Exam Limited By: No Limitations General Appearance: Alert, WD/WN, No Apparent Distress Eye Exam: Bilateral Eye: EOMI, PERRL Ears: Normal External Exam, Normal TMs Nose: Normal Inspection, Normal Mucosa Throat/Mouth: Normal Inspection, Normal Lips, Normal Teeth, Normal Gums, Normal Oropharynx, Normal Voice, No Airway Compromise Head: Atraumatic, Normocephalic Neck: Normal Inspection, Supple, Non-Tender, Full Range of Motion Respiratory/Chest: No Respiratory Distress, Lungs Clear, Normal Breath Sounds, No Accessory Muscle Use, Chest Non-Tender Cardiovascular: Normal Peripheral Pulses, Regular Rate, Rhythm Peripheral Pulses: 2+: Radial (L), Radial (R), Posterior Tibial (L), Posterior Tibial (R), Dorsalis Pedis (L), Dorsalis Pedis (R) GI/Abdominal: Normal Bowel Sounds, Soft, Non-Tender, No Organomegaly, No Mass, Pelvis Stable (Female) Exam: Deferred Rectal (Female) Exam: Deferred Back Exam: Normal Inspection, Full Range of Motion Extremities: Normal Inspection, Normal Range of Motion, No Pedal Edema, Normal Capillary Refill Neurological: Alert, Oriented, CN II-XII Intact, Normal Cognition, Normal Gait, No Motor/Sensory Deficits Psychiatric: Normal Affect, Normal Mood Skin Exam: Warm, Dry, Intact, Normal Color, No Rash Lymphatic: No Adenopathy #1 Interpretation EKG Date: 09/05/20 Time: 07:53 Rhythm: NSR Rate (Beats/Min): 76 [place]: Normal P-Wave: Present QRS: Normal ST-T: Normal QT: Normal Comparison: No Change Course - Vital Signs Last Recorded V/S: Last Vital Signs Temp 97.6 F 09/05/20 08:10 Pulse 80 09/05/20 08:10 Resp 18 09/05/20 08:10 BP 127/76 09/05/20 08:27 Pulse Ox 96 09/05/20 08:10 - Orders/Labs/Meds Orders: Active Orders 24 hr Category Date Time Status Peripheral IV Insertion Adult [OM.PC] Stat Oth 09/05/20 08:20 Ordered Labs: Laboratory Tests 09/05/20 09/05/20 09/05/20 Range/Units 08:15 08:15 08:20 WBC 9.3 (4.0-10.0) x10^3/uL RBC 4.93 (4.00-5.50) x10^6/uL Hgb 14.3 (12.0-16.0) g/dL Hct 41.8 (33.0-47.0) % MCV 84.8 D (78.0-93.0) fL MCH 29.0 (26.0-32.0) pg MCHC 34.2 (32.0-36.0) g/dL RDW Coeff of Daljit 13.8 (10.0-15.0) % Plt Count 179 (130-400) x10^3/uL Neut % (Auto) 80.7 H (50.0-80.0) % Lymph % (Auto) 10.0 L (25.0-50.0) % [place] % (Auto) 7.8 (2.0-11.0) % Eos % (Auto) 1.3 (0.0-4.0) % Baso % (Auto) 0.2 (0.2-1.2) % Sodium 134 L (136-145) mmol/L Potassium 3.9 (3.5-5.1) mmol/L Chloride 97 L (98-107) mmol/L Carbon Dioxide 27 (21-32) mmol/L Anion Gap 13.9 (10-20) mmol/L BUN 9 (7-18) mg/dL Creatinine 0.8 (0.55-1.02) mg/dL Est Cr Clr Drug Dosing TNP Estimated GFR (MDRD) > 60 Glucose 106 (74-106) mg/dL Calcium 9.1 (8.5-10.1) mg/dL Corrected Calcium 9.10 (8.5-10.1) mg/dL Total Bilirubin 0.6 (0.2-1.0) mg/dL AST 16 (15-37) U/L ALT 22 (14-59) U/L Alkaline Phosphatase 81 (46-116) U/L POC Troponin I 0.01 (0.00-0.08) ng/mL Total Protein 7.3 (6.4-8.2) g/dL Albumin 4.0 (3.4-5.0) g/dL Globulin 3.3 Albumin/Globulin Ratio 1.21 SARS CoV-2 RNA Rapid CHANDANA (NEGATIVE) 09/05/20 Range/Units 09:16 WBC (4.0-10.0) x10^3/uL RBC (4.00-5.50) x10^6/uL Hgb (12.0-16.0) g/dL Hct (33.0-47.0) % MCV (78.0-93.0) fL MCH (26.0-32.0) pg MCHC (32.0-36.0) g/dL RDW Coeff of Daljit (10.0-15.0) % Plt Count (130-400) x10^3/uL Neut % (Auto) (50.0-80.0) % Lymph % (Auto) (25.0-50.0) % [place] % (Auto) (2.0-11.0) % Eos % (Auto) (0.0-4.0) % Baso % (Auto) (0.2-1.2) % Sodium (136-145) mmol/L Potassium (3.5-5.1) mmol/L Chloride (98-107) mmol/L Carbon Dioxide (21-32) mmol/L Anion Gap (10-20) mmol/L BUN (7-18) mg/dL Creatinine (0.55-1.02) mg/dL Est Cr Clr Drug Dosing Estimated GFR (MDRD) Glucose (74-106) mg/dL Calcium (8.5-10.1) mg/dL Corrected Calcium (8.5-10.1) mg/dL Total Bilirubin (0.2-1.0) mg/dL AST (15-37) U/L ALT (14-59) U/L Alkaline Phosphatase (46-116) U/L POC Troponin I (0.00-0.08) ng/mL Total Protein (6.4-8.2) g/dL Albumin (3.4-5.0) g/dL Globulin Albumin/Globulin Ratio SARS CoV-2 RNA Rapid CHANDANA Negative (NEGATIVE) Meds: Medications Discontinued Medications Generic Name Dose Route Start Last Admin Trade Name Freq PRN Reason Stop Dose Admin Aspirin 324 mg 09/05/20 08:21 09/05/20 08:26 Aspirin PO 09/05/20 08:22 324 mg ONETIME ONE Administration Nitroglycerin 0.4 mg 09/05/20 08:21 09/05/20 08:27 Nitrostat SL 09/05/20 08:22 0.4 mg ONETIME ONE Administration Sodium Chloride 10 ml 09/05/20 08:20 Saline Flush FLUSH ASDIRECTED PRN Keep Vein Open - Re-Assessments/Exams Free Text/Narrative Re-Assessment/Exam: 09/05/20 08:40 324 aspirin orally. NItro 1 tab sl. 09/05/20 09:20 Her anterior left chest pain resolved after the 1 dose of nitro about 20 minutes after taking it. The patient feels more that her symptoms improved after she was told that her labs and her EKG were okay. She does have history of anxiety and wonders this is not more anxiety in nature as this is a common symptom for her with her anxiety. Chest xray per radiology no acute acute process. Laboratory evaluation shows a normal white blood cell count at 9.3 hemoglobin 14.3 and platelets 179. The rest of her panel is rather unremarkable with sodium 134 chloride 97 normal creatinine is 0.8 with a BUN of 9 troponin 0 0.01. Her pain has been going on for more than 24 hours. She continues to feel just "crappy" she says which is how she has felt in the past with her Angina. She is really quite vague and can't describe her symptoms. She continues chest pain-free after the above. Her troponin is negative with her symptoms going on for over 24 hours. This could be a mixture of anxiety versus angina. She does have a history of angina. She is on isosorbide for angina prophylaxis. We will discharge her home with nitro for tonight and if she has the development of the pain to try this. I would like her to follow-up with her primary care tomorrow. I discussed at length the appropriate usage of nitro. Especially if after 3 doses she does not have any relief. She is understanding of this and her questions are answered. Departure - Departure Time of Disposition: 10:01 Disposition: Home, Self-Care 01 Clinical Impression: Acute angina Prescriptions: Nitroglycerin [Nitrostat] 0.4 mg SL ASDIRECTED #6 tab.subl Instructions: Angina, [id number] Referrals: Aylin Condon DO [Primary Care Provider] - Forms: ED Department Discharge Additional Instructions: Continue with your previous medications. Rest today. Nitro, 1 tablet under your tongue if the pain returns, repeat every 5 minutes for a total of 3 doses. RX sent to the pharmacy. If the pain does not resolve after three doses be seen in the ED or urgent care. See Dr. Condon tomorrow in the clinic for recheck. Return to the ED if new or worsening symptoms or as above. Sepsis Event Note (ED) - Focused Exam Vital Signs: Vital Signs Temp Pulse Resp BP BP Pulse Ox 09/05/20 08:27 127/76 09/05/20 08:10 97.6 F 80 18 157/90 H 96 - My Orders Last 24 Hours: My Active Orders 09/05/20 08:20 Peripheral IV Insertion Adult [OM.PC] Stat - Assessment/Plan Last 24 Hours: My Active Orders 09/05/20 08:20 Peripheral IV Insertion Adult [OM.PC] Stat
[2020-09-05 08:42] LABS: CHLORIDE,CL 97 mmol/L (98-107); SODIUM,NA 134 mmol/L (136-145)
[2020-09-05 08:43] LABS: ANION GAP 13.9 mmol/L (10-20)
--- NOTE | 2020-09-05 08:59 | CR ---
[id number] RAD/RAD Chest PA And Lateral EXAM: RAD Chest PA And Lateral CLINICAL DATA: CHEST PAIN COPD COMPARISON: CORRELATION IS MADE WITH MARCH 16, 2019 FINDINGS: A left mastectomy is seen The lungs are clear The cardiac silhouette is stable IMPRESSION: NO ACUTE PROCESS. Shivam Diamond MD 09/05/20 0858 Thank you for allowing us to participate in the care of your patient.
[2020-09-05 09:39] VITALS: BP 157/90; PULSE 80
== END 2020-09-05 10:26 | disposition home or self-care (01) ==
LOC: VM.ED 07:58 → SUPCPDRO 07:58 → VM.ED 10:26
DX: I25.119 Atherosclerotic heart disease of native coronary artery with unspecified angina pectoris (principal); I10 Essential (primary) hypertension; J44.9 Chronic obstructive pulmonary disease, unspecified; M19.90 Unspecified osteoarthritis, unspecified site; Z79.82 Long term (current) use of aspirin; Z79.899 Other long term (current) drug therapy; Z88.5 Allergy status to narcotic agent; Z88.8 Allergy status to other drugs, medicaments and biological substances; Z88.0 Allergy status to penicillin; Z20.828 Contact with and (suspected) exposure to other viral communicable diseases
CPT/HCPCS: 71046; 80053; 84484; 85025; 93005; 93010; 99284; 99285-25; A9270-GY; U0002

== ENCOUNTER 2020-09-18 10:50 | Emergency (ER) | payer MEDICARE, BC ==
--- NOTE | 2020-09-18 11:05 | EDM.PDOC ---
ED HPI GENERAL MEDICAL PROBLEM - General Chief Complaint: Chest Pain Stated Complaint: CHEST PAIN Time Seen by Provider: 09/18/20 10:55 Source of Information: Reports: Patient, EMS, Family History Limitations: Reports: No Limitations - History of Present Illness INITIAL COMMENTS - FREE TEXT/NARRATIVE: Patient states she has been having intermittent chest pain over the last several days she describes as midsternal sharp stabbing intermittent that may last anywhere from minutes to hours at a time. She has been seen here on 06 September in the ER with a negative work-up and then seen by her primary care provider a few days later with a normal checkup and only had an increase in her Isorbid. Patient states at 6:00 this morning she started having chest pain that she described as a 6 out of 10 took a nitro and was completely relieved and then it started again about 930 when she called EMS. She states the pain described as mid sternal sharp and stabbing with questionable radiation across the left breast and into the left arm. She denies any nausea or vomiting diaphoresis or shortness of breath. She has had a cardiac cath questionable 5 to 6 years ago where she was told she had coronary artery disease but no stents were placed. Currently at this time she is pain-free and states she feels fine Duration: Day(s): Location: Reports: Chest Quality: Reports: Stabbing Severity: Mild Improves with: Reports: Medication Worsens with: Reports: None Associated Symptoms: Reports: No Other Symptoms Treatments HAND IRONER: Reports: Aspirin, Nitroglycerin - Related Data Allergies Allergy/AdvReac Type Severity Reaction Status Date / Time lisinopril Allergy Shortness Verified 09/18/20 11:11 of Breath Penicillins Allergy Hives Verified 09/18/20 11:11 codeine AdvReac Nausea Verified 09/18/20 11:11 hydrocodone AdvReac Abdominal Verified 09/18/20 11:11 Pain metoprolol succinate AdvReac Anxiety Verified 09/18/20 11:11 [From Toprol XL] oxycodone HCl [From Roxicet] AdvReac Nausea and Verified 09/18/20 11:11 Vomiting Home Meds: Home Meds ALPRAZolam [Xanax] 0.25 mg PO BID 12/25/13 [History] Sertraline HCl 100 mg PO DAILY 12/25/13 [History] Aspirin 325 mg PO DAILY 05/22/14 [History] Isosorbide Mononitrate [Imdur] 60 mg PO DAILY 05/22/14 [History] Tiotropium [Spiriva HandiHaler] 18 mcg INH DAILY 07/16/15 [History] Cholecalciferol (Vitamin D3) [Vitamin D3] 3,000 unit PO ASDIRECTED 08/16/15 [History] Cyanocobalamin (Vitamin B-12) [Vitamin B-12] 1,000 mcg PO ASDIRECTED 08/16/15 [History] Nitroglycerin [Nitrostat] 0.4 mg SL ASDIRECTED #6 tab.subl 09/05/20 [Rx] Past Medical History Cardiovascular History: Reports: Angina, CAD, Hypertension Other Cardiovascular History: chest pain Respiratory History: Reports: COPD Gastrointestinal History: Reports: Hiatal Hernia Genitourinary History: Reports: UTI, Recurrent Other Genitourinary History: RECENT SALMONELLA INFECTION Musculoskeletal History: Reports: Osteoarthritis Neurological History: Reports: Vertigo Psychiatric History: Reports: Anxiety Endocrine/Metabolic History: Reports: Other (See Below) Other Endocrine/Metabolic History: hypokalemia Oncologic (Cancer) History: Reports: Breast - Past Surgical History Oncologic Surgical History: Reports: Mastectomy Social & Family History - Living Situation & Occupation Living situation: Reports: , with Family Occupation: Employed ED ROS GENERAL - Review of Systems Review Of Systems: See Below Constitutional: Reports: No Symptoms HEENT: Reports: No Symptoms Respiratory: Reports: No Symptoms. Denies: Shortness of Breath, Wheezing, Pleuritic Chest Pain Cardiovascular: Reports: Chest Pain. Denies: Claudication, Dyspnea on Exertion, Edema, Lightheadedness, Orthopnea, Syncope Endocrine: Reports: No Symptoms GI/Abdominal: Reports: No Symptoms : Reports: No Symptoms Musculoskeletal: Reports: No Symptoms Skin: Reports: No Symptoms Neurological: Reports: No Symptoms Psychiatric: Reports: No Symptoms Hematologic/Lymphatic: Reports: No Symptoms Immunologic: Reports: No Symptoms ED EXAM, GENERAL - Physical Exam Exam: See Below Exam Limited By: No Limitations General Appearance: Alert, WD/WN, No Apparent Distress Eye Exam: Bilateral Eye: Normal Inspection Throat/Mouth: Normal Inspection, Normal Lips, Normal Teeth, Normal Gums, Normal Oropharynx, Normal Voice, No Airway Compromise Head: Atraumatic, Normocephalic Neck: Normal Inspection, Supple, Non-Tender, Full Range of Motion Respiratory/Chest: No Respiratory Distress, Lungs Clear, Normal Breath Sounds, No Accessory Muscle Use, Chest Non-Tender Cardiovascular: Normal Peripheral Pulses, Regular Rate, Rhythm, No Edema, No Gallop, No JVD, No Murmur, No Rub GI/Abdominal: Normal Bowel Sounds, Soft, Non-Tender, No Organomegaly, No Distention. No: Guarding, Rigid, Rebound, Tender Extremities: Normal Inspection, Normal Range of Motion, Non-Tender, No Pedal Edema, Normal Capillary Refill Neurological: Alert, Oriented, CN II-XII Intact, Normal Cognition, Normal Gait Psychiatric: Normal Affect, Normal Mood Skin Exam: Warm, Dry, Intact, Normal Color Course - Vital Signs Text/Narrative:: EKG via EMS normal sinus rhythm no acute findings normal IL interval labs ordered CBC BMP troponin chest x-ray CXR NAF CBC wnl Trop wnl PT had cath 2013 called [id number] Thomas at 1246 will see in consult send through ER spoke with Er will accept 1252 Last Recorded V/S: Last Vital Signs Temp 36.9 C 09/18/20 13:57 Pulse 72 09/18/20 13:57 Resp 14 09/18/20 13:57 BP 124/80 09/18/20 13:57 Pulse Ox 96 09/18/20 13:57 - Orders/Labs/Meds Labs: Laboratory Tests 09/18/20 09/18/20 Range/Units 11:20 11:20 WBC 10.3 H (4.0-10.0) x10^3/uL RBC 4.97 (4.00-5.50) x10^6/uL Hgb 14.6 (12.0-16.0) g/dL Hct 41.6 (33.0-47.0) % MCV 83.7 (78.0-93.0) fL MCH 29.4 (26.0-32.0) pg MCHC 35.1 (32.0-36.0) g/dL RDW Coeff of Daljit 13.4 (10.0-15.0) % Plt Count 172 (130-400) x10^3/uL Add Manual Diff Yes Neutrophils % (Manual) 87 H (50-80) % Band Neutrophils % 1 (0-6) % Lymphocytes % (Manual) 9 L (25-50) % Monocytes % (Manual) 3 (2-11) % Platelet Estimate Adequate Anisocytosis 1+ slight H Sodium 133 L (136-145) mmol/L Potassium 5.1 (3.5-5.1) mmol/L Chloride 99 (98-107) mmol/L Carbon Dioxide 22 (21-32) mmol/L Anion Gap 17.1 (10-20) mmol/L BUN 10 (7-18) mg/dL Creatinine 0.7 (0.55-1.02) mg/dL Est Cr Clr Drug Dosing TNP Estimated GFR (MDRD) > 60 Glucose 112 H (74-106) mg/dL Calcium 8.7 (8.5-10.1) mg/dL Troponin I 0.048 (<=0.056) ng/mL Departure - Departure Time of Disposition: 12:55 Disposition: DC/Tfer to [facility] Reason for Transfer *Q: Other (no [place]) Condition: Good Clinical Impression: Chest pain, Angina at rest Referrals: Aylin Condon DO [Primary Care Provider] - Forms: ED Department Discharge, Interfacility Transfer EMTALA - Problem List & Annotations (1) Chest pain SNOMED Code(s): 00707334 Code(s): R07.9 - CHEST PAIN, UNSPECIFIED Status: Acute (2) Angina at rest SNOMED Code(s): 239383258 Code(s): I20.8 - OTHER FORMS OF ANGINA PECTORIS Status: Acute
--- NOTE | 2020-09-18 11:32 | CR ---
[id number] RAD/RAD Chest PA or AP 1V EXAM: RAD Chest PA or AP 1V INDICATION: CHEST PAIN. COMPARISON: September 05, 2020. DISCUSSION: Cardiomediastinal silhouette is normal in size and contour. Lungs are clear. No pleural effusion or pneumothorax. IMPRESSION: Negative examination of the chest. Eliot Shepard MD 09/18/20 1131 Thank you for allowing us to participate in the care of your patient.
[2020-09-18 11:55] LABS: CHLORIDE,CL 99 mmol/L (98-107); SODIUM,NA 133 mmol/L (136-145)
[2020-09-18 11:59] LABS: ANION GAP 17.1 mmol/L (10-20)
[2020-09-18 13:58] VITALS: BP 124/80; PULSE 72
== END 2020-09-18 14:36 | disposition short-term general hospital (02) ==
LOC: VM.ED 10:50
DX: I25.119 Atherosclerotic heart disease of native coronary artery with unspecified angina pectoris (principal); I10 Essential (primary) hypertension; J44.9 Chronic obstructive pulmonary disease, unspecified; M19.90 Unspecified osteoarthritis, unspecified site; F41.9 Anxiety disorder, unspecified; Z88.8 Allergy status to other drugs, medicaments and biological substances; Z88.0 Allergy status to penicillin; Z88.5 Allergy status to narcotic agent; Z79.82 Long term (current) use of aspirin; Z79.899 Other long term (current) drug therapy
CPT/HCPCS: 36415; 71045; 80048; 84484; 85025; 99284; 99285-25

== ENCOUNTER 2024-11-22 08:32 | Day surgery (SDC) | payer MEDICARE, BC ==
[~2024-11-22 08:32] MED LIST: Brimonidine 0.2% Ophth Soln 5 ML Bottle ONE; Dexamethasone/Neomycin/Polymyxin B Ophth Oint 3.5 GM Tube ONE; Lidocaine 1% 2 ML ONE; Phenyleprhine/Ketorolac 4 ML Vial ONE; Povidone-Iodine 5% Sterile Ophth Soln 30 ML Bottle ONE; Proparacaine 0.5% Ophth Soln 15 ML Bottle ONE; Sodium Chloride 0.9% 10 ML Syringe FLUSH PRN
[2024-11-22] MEDS: Tropicamide 1% Ophth Soln 3 ML Bottle EYERT SCH (09:05)
[2024-11-22] MEDS: Cyclopentolate 1% Opth Soln 2 ML Bottle EYERT SCH (09:05)
[2024-11-22] MEDS: Phenylephrine 2.5% Ophth Soln 2 ML Bot EYERT SCH (09:05)
[2024-11-22] MEDS ORDERED: fentaNYL 100 MCG/2 ML SDV ONE (09:24)
[2024-11-22] MEDS ORDERED: Midazolam 1 MG/ML 2 ML SDV ONE (09:24)
[2024-11-22] MEDS: Moxifloxacin 0.5% Ophth Soln 3 ML Bottle EYERT ONE ×2 (09:30→10:25)
[2024-11-22] MEDS: Balanced Salt Solution Ophth Irrig 500 ML Bottle IOCULAR ONE (10:26)
[2024-11-22] MEDS: Lidocaine 1% PF 2 ML SDV INFILT ONE (10:26)
[2024-11-22] MEDS: Phenyleprhine/Ketorolac 4 ML Vial IO ONE (10:26)
[2024-11-22] MEDS: Chondroitin Sulfate/Hyaluronate Sodium Ophth Inj 0.5 ML Syringe IOCULAR ONE (10:27)
[2024-11-22] MEDS: Brimonidine 0.2% Ophth Soln 5 ML Bottle EYERT ONE (10:27)
[2024-11-22] MEDS: Povidone-Iodine 5% Sterile Ophth Soln 30 ML Bottle EYERT ONE (10:28)
[2024-11-22] MEDS: Dexamethasone/Neomycin/Polymyxin B Ophth Oint 3.5 GM Tube EYERT ONE (10:28)
[2024-11-22] MEDS ORDERED: ceFAZolin 500 MG Vial ONE (10:29)
[2024-11-22 11:01] VITALS: BP 111/57; PULSE 72
[2024-11-22] MEDS: acetaZOLAMIDE 500 MG Cap.ER PO ONE (11:02)
== END 2024-11-22 11:20 | disposition home or self-care (01) ==
LOC: VM.SDS 08:32
PROVIDERS: ATTEND Ophthalmology
DX: H25.811 Combined forms of age-related cataract, right eye (principal); I10 Essential (primary) hypertension; Z88.0 Allergy status to penicillin; Z88.8 Allergy status to other drugs, medicaments and biological substances; Z79.82 Long term (current) use of aspirin; Z79.899 Other long term (current) drug therapy; Z87.891 Personal history of nicotine dependence
CPT/HCPCS: 66984; A9270; J0690; J1097; J2003; J2250; J3010; V2632; J3490

== ENCOUNTER 2024-12-27 06:33 | Day surgery (SDC) | payer MEDICARE, BC ==
[~2024-12-27 06:33] MED LIST changes: -Sodium Chloride 0.9% 10 ML Syringe FLUSH PRN
[2024-12-27] MEDS: Tropicamide 1% Ophth Soln 15 ML Bottle EYELF SCH (06:52)
[2024-12-27] MEDS: Phenylephrine 2.5% Ophth Soln 2 ML Bot EYELF SCH (06:52)
[2024-12-27] MEDS: Cyclopentolate 1% Opth Soln 2 ML Bottle EYELF SCH (06:52)
[2024-12-27] MEDS: Moxifloxacin 0.5% Ophth Soln 3 ML Bottle EYELF ONE ×2 (07:16→08:43)
[2024-12-27] MEDS ORDERED: Midazolam 1 MG/ML 2 ML SDV ONE (08:22)
[2024-12-27] MEDS: Povidone-Iodine 5% Sterile Ophth Soln 30 ML Bottle EYELF ONE (08:43)
[2024-12-27] MEDS: Phenyleprhine/Ketorolac 4 ML Vial IO ONE (08:44)
[2024-12-27] MEDS: Balanced Salt Solution Ophth Irrig 500 ML Bottle IOCULAR ONE (08:44)
[2024-12-27] MEDS: Lidocaine 1% PF 2 ML SDV INFILT ONE (08:44)
[2024-12-27] MEDS: Brimonidine 0.2% Ophth Soln 5 ML Bottle EYELF ONE (08:45)
[2024-12-27] MEDS: Chondroitin Sulfate/Hyaluronate Sodium Ophth Inj 0.5 ML Syringe IOCULAR ONE (08:45)
[2024-12-27] MEDS: Dexamethasone/Neomycin/Polymyxin B Ophth Oint 3.5 GM Tube EYELF ONE (08:45)
[2024-12-27 09:02] VITALS: PULSE 68
[2024-12-27] MEDS: acetaZOLAMIDE 500 MG Cap.ER PO ONE (09:05)
[2024-12-27 09:20] VITALS: BP 110/44
== END 2024-12-27 09:30 | disposition home or self-care (01) ==
LOC: VM.SDS 06:33
PROVIDERS: ATTEND Ophthalmology
DX: H25.812 Combined forms of age-related cataract, left eye (principal); I10 Essential (primary) hypertension; Z88.8 Allergy status to other drugs, medicaments and biological substances; Z88.0 Allergy status to penicillin; Z79.82 Long term (current) use of aspirin; Z87.891 Personal history of nicotine dependence; Z79.899 Other long term (current) drug therapy
CPT/HCPCS: 00142; 66984; 99100; A9270; J1097; J2003; J2250; J3490